=== PATIENT | male | born 1975 | race Caucasian/White ===

== ENCOUNTER 2018-05-05 18:16 | Observation (INO) | payer BC ==
[2018-05-05] MEDS ORDERED: Aspirin 81 MG Tab.Chew PO ONE (18:34)
[2018-05-05] MEDS ORDERED: Sodium Chloride 0.9% 10 ML Syringe FLUSH PRN (18:35)
[2018-05-05] MEDS ORDERED: Metoprolol Tartrate 5 MG/5 ML SDV IVPUSH ONE ×2 (18:36→19:58)
[2018-05-05] MEDS ORDERED: Nitroglycerin/D5W 25 MG/250 ML BOTTLE IV SCH (18:45)
--- NOTE | 2018-05-05 19:03 | EDM.PDOC ---
ED HPI GENERAL MEDICAL PROBLEM - General Chief Complaint: Chest Pain Stated Complaint: CHEST PAIN Time Seen by Provider: 05/05/18 18:20 Source of Information: Reports: Patient History Limitations: Reports: No Limitations - History of Present Illness INITIAL COMMENTS - FREE TEXT/NARRATIVE: 43-year-old male presents for evaluation and treatment of chest discomfort. Patient reports he's been expansion chest discomfort for several weeks. He saw family medicine provider Dr. Hensley about 2 weeks ago and was prescribed "something for blood pressure". Does not sound like he has had a stress test in the past. Patient reports chest discomfort started today. At this time he is chest pain- free. He identifies pain to left anterior lateral chest. No radiation to the arm , back or neck. He states that he felt diaphoretic, nauseated and lightheaded. He reports a sense of malaise. Denies any fevers, cough or cold symptoms. No shortness of breath. Patient also reports burning epigastric pain and reports he was supposed to be tested for H.pylori but has not yet done this. Patient denies any history of diabetes, high blood pressure high cholesterol but also reports he does not normally go to the doctor. Denies any cardiac history himself. Does not know of any family history major cardiac event at a young age. Patient states he is not a smoker but he drinks alcohol. Chest Pain Score (Numeric/FACES): 0 - Related Data Allergies Allergy/AdvReac Type Severity Reaction Status Date / Time No Known Allergies Allergy Verified 05/05/18 18:24 Past Medical History Cardiovascular History: Reports: High Cholesterol, Hypertension Gastrointestinal History: Reports: GERD Musculoskeletal History: Reports: Fracture Social & Family History - Tobacco Use Smoking Status *Q: Never Smoker Second Hand Smoke Exposure: No - Caffeine Use Caffeine Use: Reports: None - Alcohol Use Days Per Week of Alcohol Use: 7 Number of Drinks Per Day: 5 Total Drinks Per Week: 35 - Recreational Drug Use Recreational Drug Use: No ED ROS GENERAL - Review of Systems Review Of Systems: See Below Constitutional: Reports: Malaise, Diaphoresis. Denies: Fever, Chills Respiratory: Denies: Shortness of Breath, Cough Cardiovascular: Reports: Chest Pain. Denies: Syncope GI/Abdominal: Reports: Abdominal Pain, Nausea. Denies: Vomiting Musculoskeletal: Denies: Neck Pain, Arm Pain, Back Pain Neurological: Denies: Syncope ED EXAM, GENERAL - Physical Exam Exam: See Below Exam Limited By: No Limitations General Appearance: Alert, WD/WN, No Apparent Distress, Obese Respiratory/Chest: No Respiratory Distress, Lungs Clear, Normal Breath Sounds Cardiovascular: Normal Peripheral Pulses, Regular Rate, Rhythm, No Murmur GI/Abdominal: Normal Bowel Sounds, Soft, Non-Tender Neurological: Alert, Oriented, Normal Cognition Psychiatric: Normal Affect, Normal Mood Skin Exam: Warm, Dry, Normal Color EKG INTERPRETATION EKG Date: 05/05/18 Time: 18:25 Rhythm: NSR Rate (Beats/Min): 101 [place]: Normal P-Wave: Present QRS: Normal ST-T: Normal QT: Normal EKG Interpretation Comments: NSR at 101 bpm. T wave inversion in lead III. No St elevation of depression. Late transition. Reviewed by myself and Dr. Zuñiga. Course - Vital Signs Last Recorded V/S: Last Vital Signs Temp 97.9 F 05/05/18 18:20 Pulse 94 05/05/18 20:07 Resp 20 05/05/18 18:20 BP 150/96 H 05/05/18 20:07 Pulse Ox 97 05/05/18 18:20 - Orders/Labs/Meds Orders: Active Orders 24 hr Category Date Time Status Patient Status [ADT] Routine ADT 05/05/18 22:15 Ordered Cardiac Monitoring [RC] . DIRECTED Care 05/05/18 18:34 Active EKG 12 Lead [EKG Documentation Completion] [RC] STAT Care 05/05/18 18:43 Active Peripheral IV Care [RC] . DIRECTED Care 05/05/18 18:35 Active Chest 1V Frontal [CR] Stat Exams 05/05/18 18:34 Taken Sodium Chloride 0.9% [Saline Flush] Med 05/05/18 18:35 Active 10 ml FLUSH ASDIRECTED PRN Peripheral IV Insertion Adult [OM.PC] Routine Oth 05/05/18 18:35 Ordered Medication Orders Sodium Chloride (Saline Flush) 10 ml FLUSH ASDIRECTED PRN PRN Reason: Keep Vein Open Last Admin: 05/05/18 18:51 Dose: 10 ml Labs: Laboratory Tests 05/05/18 05/05/18 05/05/18 Range/Units 18:30 18:30 18:30 WBC 6.90 (4.23-9.07) K/mm3 RBC 5.22 (4.63-6.08) M/mm3 Hgb 15.9 (13.7-17.5) gm/L Hct 46.9 (40.1-51.0) % MCV 89.8 (79.0-92.2) fl MCH 30.5 (25.7-32.2) pg MCHC 33.9 (32.2-35.5) g/dl RDW Std Deviation 39.6 (35.1-43.9) fL Plt Count 233 (163-337) K/mm3 MPV 9.7 (9.4-12.3) fl Neut % (Auto) 64.4 (34.0-67.9) % Lymph % (Auto) 25.5 (21.8-53.1) % [place] % (Auto) 8.8 (5.3-12.2) % Eos % (Auto) 0.9 (0.8-7.0) Baso % (Auto) 0.3 (0.1-1.2) % Neut # (Auto) 4.44 (1.78-5.38) K/mm3 Lymph # (Auto) 1.76 (1.32-3.57) K/mm3 [place] # (Auto) 0.61 (0.30-0.82) K/mm3 Eos # (Auto) 0.06 (0.04-0.54) K/mm3 Baso # (Auto) 0.02 (0.01-0.08) K/mm3 PT 10.8 (9.5-12.1) SECONDS INR 0.99 APTT 31 (24-31) SECONDS Sodium 141 (136-145) mEq/L Potassium 3.7 (3.5-5.1) mEq/L Chloride 102 (98-107) mEq/L Carbon Dioxide 26 (21-32) mEq/L Anion Gap 16.7 H (5-15) BUN 17 (7-18) mg/dL Creatinine 1.1 (0.7-1.3) mg/dL Est Cr Clr Drug Dosing 97.86 mL/min Estimated GFR (MDRD) > 60 (>60) mL/min BUN/Creatinine Ratio 15.5 (14-18) Glucose 109 H (74-106) mg/dL Calcium 9.7 (8.5-10.1) mg/dL Total Bilirubin 0.4 (0.2-1.0) mg/dL AST 44 H (15-37) U/L ALT 103 H (16-63) U/L Alkaline Phosphatase 79 (46-116) U/L CK-MB (CK-2) 3.2 (0-3.6) ng/ml Troponin I < 0.017 (0.00-0.056) ng/mL Total Protein 8.8 H (6.4-8.2) g/dl Albumin 4.5 (3.4-5.0) g/dl Globulin 4.3 gm/dL Albumin/Globulin Ratio 1.1 (1-2) Lipase 189 (73-393) U/L 05/05/18 Range/Units 21:15 WBC (4.23-9.07) K/mm3 RBC (4.63-6.08) M/mm3 Hgb (13.7-17.5) gm/L Hct (40.1-51.0) % MCV (79.0-92.2) fl MCH (25.7-32.2) pg MCHC (32.2-35.5) g/dl RDW Std Deviation (35.1-43.9) fL Plt Count (163-337) K/mm3 MPV (9.4-12.3) fl Neut % (Auto) (34.0-67.9) % Lymph % (Auto) (21.8-53.1) % [place] % (Auto) (5.3-12.2) % Eos % (Auto) (0.8-7.0) Baso % (Auto) (0.1-1.2) % Neut # (Auto) (1.78-5.38) K/mm3 Lymph # (Auto) (1.32-3.57) K/mm3 [place] # (Auto) (0.30-0.82) K/mm3 Eos # (Auto) (0.04-0.54) K/mm3 Baso # (Auto) (0.01-0.08) K/mm3 PT (9.5-12.1) SECONDS INR APTT (24-31) SECONDS Sodium (136-145) mEq/L Potassium (3.5-5.1) mEq/L Chloride (98-107) mEq/L Carbon Dioxide (21-32) mEq/L Anion Gap (5-15) BUN (7-18) mg/dL Creatinine (0.7-1.3) mg/dL Est Cr Clr Drug Dosing mL/min Estimated GFR (MDRD) (>60) mL/min BUN/Creatinine Ratio (14-18) Glucose (74-106) mg/dL Calcium (8.5-10.1) mg/dL Total Bilirubin (0.2-1.0) mg/dL AST (15-37) U/L ALT (16-63) U/L Alkaline Phosphatase (46-116) U/L CK-MB (CK-2) (0-3.6) ng/ml Troponin I < 0.017 (0.00-0.056) ng/mL Total Protein (6.4-8.2) g/dl Albumin (3.4-5.0) g/dl Globulin gm/dL Albumin/Globulin Ratio (1-2) Lipase (73-393) U/L Meds: Medications Generic Name Dose Route Start Last Admin Trade Name Fregamaliel PRN Reason Stop Dose Admin Sodium Chloride 10 ml 05/05/18 18:35 05/05/18 18:51 Saline Flush FLUSH 10 ml ASDIRECTED PRN Administration Keep Vein Open Discontinued Medications Generic Name Dose Route Start Last Admin Trade Name Serena PRN Reason Stop Dose Admin Aspirin 324 mg 05/05/18 18:34 05/05/18 18:46 Aspirin PO 05/05/18 18:35 324 mg ONETIME ONE Administration Al Hydroxide/Mg Hydroxide 30 0 ml 05/05/18 19:50 05/05/18 19:57 ml/ Lidocaine HCl 15 ml PO 05/05/18 19:51 45 ml ONETIME ONE Administration Famotidine 20 mg 05/05/18 22:03 05/05/18 22:09 Pepcid IVPUSH 05/05/18 22:04 20 mg ONETIME ONE Administration Nitroglycerin/Dextrose 25 mg in 250 mls @ 3 mls/hr 05/05/18 18:45 05/05/18 18 :52 Nitroglycerin 25 Mg/D5w 250 Ml IV 5 mcg/min TITRATE GINNA 3 mls/hr Administration Protocol 5 MCG/MIN Metoprolol Tartrate 5 mg 05/05/18 18:36 05/05/18 18:48 Lopressor IVPUSH 05/05/18 18:37 5 mg ONETIME ONE Administration Metoprolol Tartrate 5 mg 05/05/18 19:58 05/05/18 20:07 Lopressor IVPUSH 05/05/18 19:59 5 mg ONETIME ONE Administration - Re-Assessments/Exams Free Text/Narrative Re-Assessment/Exam: 05/05/18 20:01 Checked on the patient. Feels improved but still states he does not feel "quite right". Plan will be to try a GI cocktail and give an additional 5mg IV lopressor. B/p has come down, systolic is 150s-160s. Will repeat trop at 3 hours. Discussed disposition, if top is negative HEART score is 4 pts indicating a moderate risk of MACE. Discussed observation admission for a chest pain rule out. 05/05/18 22:28 Repeat troponin is negative at less than 0.017. Discussed with the patient is disposition. I eel it is appropriate for him to come in for a Chest Pain Rule Out. Declined Pain Medication through the ED. Report Change with the GI Cocktail. Blood pressure has come down into the 150s systolic consistently. Denies chest pain only complains of discomfort and malaise. Case discussed with Dr. Edward, hospitalist on-call. He agrees to the admission for chest pain rule out. Plan to stress in the morning. Departure - Departure Time of Disposition: 22:31 Disposition: Refer to Observation Reason for Transfer *Q: Other Condition: Fair Clinical Impression: Chest pain Referrals: Kalpesh Hensley Jr, MD [Primary Care Provider] - Forms: ED Department Discharge Additional Instructions: Patient to be admitted for observation for a chest pain rule out under Dr. Edward. - My Orders Last 24 Hours: My Active Orders 05/05/18 18:34 Cardiac Monitoring [RC] . DIRECTED Chest 1V Frontal [CR] Stat 05/05/18 18:35 Peripheral IV Care [RC] . DIRECTED Sodium Chloride 0.9% [Saline Flush] 10 ml FLUSH ASDIRECTED PRN Peripheral IV Insertion Adult [OM.PC] Routine 05/05/18 18:43 EKG 12 Lead [EKG Documentation Completion] [RC] STAT 05/05/18 22:15 Patient Status [ADT] Routine - Assessment/Plan Last 24 Hours: My Active Orders 05/05/18 18:34 Cardiac Monitoring [RC] . DIRECTED Chest 1V Frontal [CR] Stat 05/05/18 18:35 Peripheral IV Care [RC] . DIRECTED Sodium Chloride 0.9% [Saline Flush] 10 ml FLUSH ASDIRECTED PRN Peripheral IV Insertion Adult [OM.PC] Routine 05/05/18 18:43 EKG 12 Lead [EKG Documentation Completion] [RC] STAT 05/05/18 22:15 Patient Status [ADT] Routine
[2018-05-05] MEDS ORDERED: Alum Hydrox/Mag Hydrox/Simeth 30 ML, Lidocaine 2% 15 ML PO ONE ×2 (19:50)
[2018-05-05] MEDS ORDERED: Famotidine 20 MG/2 ML SDV IVPUSH ONE (22:03)
[2018-05-05] MEDS ORDERED: hydrALAZINE 20 MG/ML SDV IVPUSH PRN (23:10)
[2018-05-05] MEDS ORDERED: Ondansetron 4 MG/2 ML SDV IVPUSH PRN (23:11)
[2018-05-05] MEDS ORDERED: HYDROmorphone 1 MG/ML Syringe IVPUSH PRN (23:12)
[2018-05-05] MEDS ORDERED: Nitroglycerin 0.4 MG Tab.SL SL PRN (23:13)
[2018-05-05] MEDS ORDERED: LORazepam 2 MG/ML SDV IVPUSH PRN (23:14)
--- NOTE | 2018-05-06 06:31 | PCM.HP ---
H&P History of Present Illness - General Date of Service: 05/06/18 Admit Problem/Dx: Admission Diagnosis/Problem Admission Diagnosis/Problem Chest pain Source of Information: Patient, Old Records, Provider, RN, RN Notes Reviewed History Limitations: Reports: No Limitations - History of Present Illness Initial Comments - Free Text/Narative: Roland Johnston is a 43 yo male who presented to our ED yesterday evening with chest pain. He reports symptoms have been coming and going for the past several weeks and he did see Dr. Hensley 2 weeks ago where he was prescribed something for blood pressure. ED provider notes does not always had a stress test in the past. He was having pain prior to presenting to the ED and in the ED he is chest pain-free. Reports the pain is in his left anterior lateral chest with no radiation. States he feels diaphoretic, nausea, and lightheadedness. He has a sense of malaise. Denies any fever, cough, cold symptoms, shortness of breath. He reports his been having epigastric pain and has been instructed to be tested for H. pylori but has not yet done this. Denies any history of diabetes, hypertension, hyperlipidemia and also reports he does not normally go to see a doctor. Denies any personal cardiac history but does have family history of major cardiac events at young ages. He is not a smoker but he does drink alcohol. Reports 5 drinks per day every day of the week. In the ED twelve-lead EKG is obtained showing sinus tachycardia to 101 bpm with T-wave inversion in lead 3. No ST elevation or depression. There is late transition noted. Temp is 97 9. Pulse 94. Respirations 20. Blood pressure 150/96. Pulse ox 97%. Labs are obtained: CBC is 6.90. Hemoglobin 15.9. Hematocrit 46.9. He is normocytic. Blood sugar 233,000. Neutrophils are normal at 64.4%. PT is 10.8. INR 0.99. APTT is 31. Sodium is 141. Potassium 3.7. Chloride 102. Carbon dioxide 26. Anion gap is high at 16.7. BUN is 17. Creatinine 1.1. EGFR is greater than 60. Glucose is 109. Bilirubin 0.4. AST is elevated at 44, ALT elevated at 103, alkaline phosphatase normal at 79. CK-MB is normal at 3.2. Troponin normal less than 0.017. Protein is high at 8.8. Albumin normal at 4.5. Lipase good at 189. Repeat troponin is obtained and is negative at less than 0.017. His given 325 mg aspirin along with a GI cocktail and 20 mg Pepcid IV push. He was started on nitroglycerin drip and given 25 mg metoprolol IV pushes. High scores obtained and is for showing a moderate risk of MACE. He carries a history of HLD, HTN, GERD. He was never a smoker. He does use alcohol daily. He is a full code. His PCP is Dr. Hensley. He is admitted to the medical floor observation status with telemetry for chest pain rule out. Chest Pain Score (Numeric/FACES): 0 - Related Data Allergies/Adverse Reactions: Allergies Allergy/AdvReac Type Severity Reaction Status Date / Time No Known Allergies Allergy Verified 05/05/18 18:24 Home Medications: Home Meds amLODIPine [Norvasc] 5 mg PO DAILY 05/06/18 [History] Past Medical History Cardiovascular History: Reports: High Cholesterol, Hypertension, Other (See Below) Other Cardiovascular History: possible heart murmur at the age of 4; was told it resolved but unsure. Gastrointestinal History: Reports: GERD Musculoskeletal History: Reports: Fracture Social & Family History - Family History Family Medical History: Noncontributory - Tobacco Use Smoking Status *Q: Never Smoker Second Hand Smoke Exposure: No - Caffeine Use Caffeine Use: Reports: None - Alcohol Use Days Per Week of Alcohol Use: 6 Number of Drinks Per Day: 4 Total Drinks Per Week: 24 Date of Last Drink: 05/04/18 - Recreational Drug Use Recreational Drug Use: No H&P Review of Systems - Review of Systems: Review Of Systems: See Below General: Reports: No Symptoms. Denies: Fever, Chills, Malaise, Weakness, Fatigue HEENT: Reports: No Symptoms. Denies: Headaches, Sore Throat Pulmonary: Reports: No Symptoms. Denies: Shortness of Breath, Wheezing, Pleuritic Chest Pain, Cough, Sputum, Hemoptysis Cardiovascular: Reports: No Symptoms. Denies: Chest Pain, Palpitations, Dyspnea on Exertion, Edema, Lightheadedness, Blood Pressure Problem Gastrointestinal: Reports: No Symptoms. Denies: Abdominal Pain, Constipation, Diarrhea, Flatus, Nausea, Vomiting Genitourinary: Reports: No Symptoms. Denies: Pain Musculoskeletal: Reports: No Symptoms Skin: Reports: No Symptoms Psychiatric: Reports: No Symptoms. Denies: Confusion, Depression, Anxiety Neurological: Reports: No Symptoms. Denies: Dizziness, Headache, Pre-Existing Deficit, Seizure, Syncope, Trouble Speaking, Difficulty Walking, Weakness, Gait Disturbance Hematologic/Lymphatic: Reports: No Symptoms Immunologic: Reports: No Symptoms Exam - Exam Exam: See Below - Vital Signs Vital Signs: Last Vital Signs Temp 99.1 F 05/06/18 04:22 Pulse 65 05/06/18 04:22 Resp 16 05/06/18 04:22 BP 150/79 H 05/06/18 04:22 Pulse Ox 98 05/06/18 04:22 Weight: 266 lb 6 oz - Exam Quality Assessment: DVT Prophylaxis General: Alert, Oriented, Cooperative. No: Mild Distress HEENT: Conjunctiva Clear, EACs Clear, EOMI, Hearing Intact, Mucosa Moist & [place] , Nares Patent, Posterior Pharynx Clear, PERRLA Neck: Supple, Trachea Midline Lungs: Clear to Auscultation, Normal Respiratory Effort Cardiovascular: Regular Rate, Regular Rhythm GI/Abdominal Exam: Normal Bowel Sounds, Soft, Non-Tender, No Distention, No Abnormal Bruit (Male) Exam: Deferred Rectal (Males) Exam: Deferred Back Exam: Normal Inspection, Full Range of Motion Extremities: Normal Inspection, Normal Range of Motion, Non-Tender, No Pedal Edema, Normal Capillary Refill Peripheral Pulses: 2+: Radial (L), Radial (R), Dorsalis Pedis (L), Dorsalis Pedis (R) Skin: Warm, Dry, Intact Neurological: Cranial Nerves Intact Neuro Extensive - Mental Status: Alert, Oriented x3, Normal Mood/Affect, Normal Cognition, Memory Intact Psychiatric: Alert, Normal Affect, Normal Mood - Patient Data Lab Results Last 24 hrs: Laboratory Results - last 24 hr 05/05/18 05/05/18 05/05/18 Range/Units 18:30 18:30 18:30 WBC 6.90 (4.23-9.07) K/mm3 RBC 5.22 (4.63-6.08) M/mm3 Hgb 15.9 (13.7-17.5) gm/L Hct 46.9 (40.1-51.0) % MCV 89.8 (79.0-92.2) fl MCH 30.5 (25.7-32.2) pg MCHC 33.9 (32.2-35.5) g/dl RDW Std Deviation 39.6 (35.1-43.9) fL Plt Count 233 (163-337) K/mm3 MPV 9.7 (9.4-12.3) fl Neut % (Auto) 64.4 (34.0-67.9) % Lymph % (Auto) 25.5 (21.8-53.1) % [place] % (Auto) 8.8 (5.3-12.2) % Eos % (Auto) 0.9 (0.8-7.0) Baso % (Auto) 0.3 (0.1-1.2) % Neut # (Auto) 4.44 (1.78-5.38) K/mm3 Lymph # (Auto) 1.76 (1.32-3.57) K/mm3 [place] # (Auto) 0.61 (0.30-0.82) K/mm3 Eos # (Auto) 0.06 (0.04-0.54) K/mm3 Baso # (Auto) 0.02 (0.01-0.08) K/mm3 PT 10.8 (9.5-12.1) SECONDS INR 0.99 APTT 31 (24-31) SECONDS Sodium 141 (136-145) mEq/L Potassium 3.7 (3.5-5.1) mEq/L Chloride 102 (98-107) mEq/L Carbon Dioxide 26 (21-32) mEq/L Anion Gap 16.7 H (5-15) BUN 17 (7-18) mg/dL Creatinine 1.1 (0.7-1.3) mg/dL Est Cr Clr Drug Dosing 97.86 mL/min Estimated GFR (MDRD) > 60 (>60) mL/min BUN/Creatinine Ratio 15.5 (14-18) Glucose 109 H (74-106) mg/dL Calcium 9.7 (8.5-10.1) mg/dL Total Bilirubin 0.4 (0.2-1.0) mg/dL AST 44 H (15-37) U/L ALT 103 H (16-63) U/L Alkaline Phosphatase 79 (46-116) U/L CK-MB (CK-2) 3.2 (0-3.6) ng/ml Troponin I < 0.017 (0.00-0.056) ng/mL Total Protein 8.8 H (6.4-8.2) g/dl Albumin 4.5 (3.4-5.0) g/dl Globulin 4.3 gm/dL Albumin/Globulin Ratio 1.1 (1-2) Lipase 189 (73-393) U/L 05/05/18 05/06/18 05/06/18 Range/Units 21:15 05:11 05:11 WBC 5.57 (4.23-9.07) K/mm3 RBC 5.01 (4.63-6.08) M/mm3 Hgb 15.3 (13.7-17.5) gm/L Hct 45.1 (40.1-51.0) % MCV 90.0 (79.0-92.2) fl MCH 30.5 (25.7-32.2) pg MCHC 33.9 (32.2-35.5) g/dl RDW Std Deviation 39.6 (35.1-43.9) fL Plt Count 209 (163-337) K/mm3 MPV 9.9 (9.4-12.3) fl Neut % (Auto) 59.4 (34.0-67.9) % Lymph % (Auto) 26.4 (21.8-53.1) % [place] % (Auto) 12.7 H (5.3-12.2) % Eos % (Auto) 1.1 (0.8-7.0) Baso % (Auto) 0.4 (0.1-1.2) % Neut # (Auto) 3.31 (1.78-5.38) K/mm3 Lymph # (Auto) 1.47 (1.32-3.57) K/mm3 [place] # (Auto) 0.71 (0.30-0.82) K/mm3 Eos # (Auto) 0.06 (0.04-0.54) K/mm3 Baso # (Auto) 0.02 (0.01-0.08) K/mm3 PT (9.5-12.1) SECONDS INR APTT (24-31) SECONDS Sodium (136-145) mEq/L Potassium (3.5-5.1) mEq/L Chloride (98-107) mEq/L Carbon Dioxide (21-32) mEq/L Anion Gap (5-15) BUN (7-18) mg/dL Creatinine (0.7-1.3) mg/dL Est Cr Clr Drug Dosing mL/min Estimated GFR (MDRD) (>60) mL/min BUN/Creatinine Ratio (14-18) Glucose (74-106) mg/dL Calcium (8.5-10.1) mg/dL Total Bilirubin (0.2-1.0) mg/dL AST (15-37) U/L ALT (16-63) U/L Alkaline Phosphatase (46-116) U/L CK-MB (CK-2) (0-3.6) ng/ml Troponin I < 0.017 < 0.017 (0.00-0.056) ng/mL Total Protein (6.4-8.2) g/dl Albumin (3.4-5.0) g/dl Globulin gm/dL Albumin/Globulin Ratio (1-2) Lipase (73-393) U/L 05/06/18 Range/Units 05:11 WBC (4.23-9.07) K/mm3 RBC (4.63-6.08) M/mm3 Hgb (13.7-17.5) gm/L Hct (40.1-51.0) % MCV (79.0-92.2) fl MCH (25.7-32.2) pg MCHC (32.2-35.5) g/dl RDW Std Deviation (35.1-43.9) fL Plt Count (163-337) K/mm3 MPV (9.4-12.3) fl Neut % (Auto) (34.0-67.9) % Lymph % (Auto) (21.8-53.1) % [place] % (Auto) (5.3-12.2) % Eos % (Auto) (0.8-7.0) Baso % (Auto) (0.1-1.2) % Neut # (Auto) (1.78-5.38) K/mm3 Lymph # (Auto) (1.32-3.57) K/mm3 [place] # (Auto) (0.30-0.82) K/mm3 Eos # (Auto) (0.04-0.54) K/mm3 Baso # (Auto) (0.01-0.08) K/mm3 PT (9.5-12.1) SECONDS INR APTT (24-31) SECONDS Sodium 140 (136-145) mEq/L Potassium 3.9 (3.5-5.1) mEq/L Chloride 104 (98-107) mEq/L Carbon Dioxide 26 (21-32) mEq/L Anion Gap 13.9 (5-15) BUN 17 (7-18) mg/dL Creatinine 1.1 (0.7-1.3) mg/dL Est Cr Clr Drug Dosing 97.86 mL/min Estimated GFR (MDRD) > 60 (>60) mL/min BUN/Creatinine Ratio 15.5 (14-18) Glucose 104 (74-106) mg/dL Calcium 9.4 (8.5-10.1) mg/dL Total Bilirubin 0.7 (0.2-1.0) mg/dL AST 33 (15-37) U/L ALT 86 H (16-63) U/L Alkaline Phosphatase 71 (46-116) U/L CK-MB (CK-2) (0-3.6) ng/ml Troponin I (0.00-0.056) ng/mL Total Protein 7.8 (6.4-8.2) g/dl Albumin 3.9 (3.4-5.0) g/dl Globulin 3.9 gm/dL Albumin/Globulin Ratio 1.0 (1-2) Lipase (73-393) U/L Result Diagrams: 05/06/18 05:11 05/06/18 05:11 - Problem List (1) Chest pain SNOMED Code(s): 39886206 ICD Code: R07.9 - CHEST PAIN, UNSPECIFIED Status: Acute Priority: High Current Visit: Yes Qualifiers: Chest pain type: unspecified Qualified Code(s): R07.9 - Chest pain, unspecified (2) Hypertension SNOMED Code(s): 29894752 ICD Code: I10 - ESSENTIAL (PRIMARY) HYPERTENSION Status: Acute Priority: High Current Visit: Yes Qualifiers: Hypertension type: unspecified Qualified Code(s): I10 - Essential (primary ) hypertension (3) Hyperlipidemia SNOMED Code(s): 20153673 ICD Code: E78.5 - HYPERLIPIDEMIA, UNSPECIFIED Status: Acute Current Visit : Yes Problem List Initiated/Reviewed/Updated: Yes Orders Last 24hrs: Active Orders 24 hr Category Date Time Status Patient Status [ADT] Routine ADT 05/05/18 22:15 Active Cardiac Monitoring [RC] . DIRECTED Care 05/05/18 18:34 Active EKG 12 Lead [EKG Documentation Completion] [RC] STAT Care 05/05/18 18:43 Active Up ad Tali [RC] ASDIRECTED Care 05/05/18 23:07 Active NPO Now [Nothing per Oral Now Diet] [DIET] Diet 05/06/18 Breakfast Active Cardiolite Stress Test [Myocardial Perf Spect Multi] [ Exams 05/06/18 08:00 Ordered NM] Routine Chest 1V Frontal [CR] Stat Exams 05/05/18 18:34 Taken HYDROmorphone [Dilaudid] Med 05/05/18 23:12 Active 0.5 mg IVPUSH Q2H PRN LORazepam [Ativan] Med 05/05/18 23:14 Active 1 mg IVPUSH Q6H PRN Nitroglycerin [Nitrostat] Med 05/05/18 23:13 Active 0.4 mg SL Q5M PRN Ondansetron [Zofran] Med 05/05/18 23:11 Active 4 mg IVPUSH Q6H PRN Sodium Chloride 0.9% [Saline Flush] Med 05/05/18 18:35 Active 10 ml FLUSH ASDIRECTED PRN hydrALAZINE [Apresoline] Med 05/05/18 23:10 Active 10 mg IVPUSH Q4H PRN Peripheral IV Insertion Adult [OM.PC] Routine Oth 05/05/18 18:35 Ordered Code Status [Resuscitation Status] Routine Resus Stat 05/05/18 22:45 Ordered Medication Orders Hydralazine HCl (Apresoline) 10 mg IVPUSH Q4H PRN PRN Reason: Hypertension Hydromorphone HCl (Dilaudid) 0.5 mg IVPUSH Q2H PRN PRN Reason: Pain Lorazepam (Ativan) 1 mg IVPUSH Q6H PRN PRN Reason: Anxiety Nitroglycerin (Nitrostat) 0.4 mg SL Q5M PRN PRN Reason: Chest Pain Ondansetron HCl (Zofran) 4 mg IVPUSH Q6H PRN PRN Reason: Nausea Sodium Chloride (Saline Flush) 10 ml FLUSH ASDIRECTED PRN PRN Reason: Keep Vein Open Last Admin: 05/05/18 18:51 Dose: 10 ml Assessment/Plan Comment:: I/P: Acute: Chest pain rule-out -Reports occasional chest pain that comes and goes daily and varies in duration. -Hx/o GERD - given GI cocktail and H2 bhavesh in ED with improvement -HEART score = 4, moderate risk of MACE -Cardiolyte stress test in AM -NPO until after completion of stress test - Follow-stress test protocol for food/drink -PRN nitroglycerin as needed -Lipid panel as below -Troponins negative x3 -CKMB WNL in ED HTN -Reports he has been 150s systolic for as long as he can remember -Was reportedly started on amlodipine by PCP but has not noticed much of a change -BP elevated in ED but now 140-150s systolic -Discussed with Dr. Edward - defer to PCP for further treatment HLD -Lipid panel obtained 05/06/18: Triglycerides 151, Total cholesterol 294, LDL 218, HDL 37 -Dietary consult for lifestyle changes -Start atorvastatin 40mg BP Daily at discharge Daily ETOH use -Paediatric Physiotherapist on stopping or decreasing intake -No need for supplements/Psychiatry/LAC at this time Chronic: HLD HTN GERD Plan: Admit to medical floor observation status with telemetry Routine AM Labs Other orders as indicated above He is ambulatory so will hold off PT/OT DVT/PE prophylaxis: Ambulation and SCDs if he does not discharge today. Code status: Full code; PCP: Dr. Hensley
--- NOTE | 2018-05-06 09:21 | PCM.PRNOTE ---
- Free Text/Narrative Note: Date of service: 05/06/18 Procedure: Exercise treadmill stress test Ordering provider: Dr. Almaz Edward Indication: Chest pain Baseline EKG: Sinus Rhythm at 78 bpm with Q-waves noted in inferior leads. Poor R-wave progression. Non-specific T-wave abnormalities. The patient exercised on a standard John protocol for 10 minutes and 30 seconds achieving a maximal heart rate of 174 bpm (98% of the maximal predicted heart rate.) 12.8 METs. Blood pressure at peak stress was 170/[place] [id number]. Test terminated due to: Fatigue EKG changes of ischemia during stress or in recovery: None Symptoms: None Arrhythmias: Very rare unifocal PVC Of note: Patient did receive 5mg IV push metoprolol tartrate in ED at 1836 and 1958. This was discussed with Dr. Edward and the decision was made to continue with planned Cardiolite stress test. Impression: 1. Negative exercise treadmill ECG for ischemia. 2. Normal blood pressure response to stress. 3. Excellent exercise tolerance. 4. Nuclear images pending and will be reported separately per Radiologist.
--- NOTE | 2018-05-06 09:28 | PCM.DCSUM1 ---
Discharge Summary - Hospital Course HPI Initial Comments: Roland Johnston is a 43 yo male who presented to our ED yesterday evening with chest pain. He reports symptoms have been coming and going for the past several weeks and he did see Dr. Hensley 2 weeks ago where he was prescribed something for blood pressure. ED provider notes does not always had a stress test in the past. He was having pain prior to presenting to the ED and in the ED he is chest pain-free. Reports the pain is in his left anterior lateral chest with no radiation. States he feels diaphoretic, nausea, and lightheadedness. He has a sense of malaise. Denies any fever, cough, cold symptoms, shortness of breath. He reports his been having epigastric pain and has been instructed to be tested for H. pylori but has not yet done this. Denies any history of diabetes, hypertension, hyperlipidemia and also reports he does not normally go to see a doctor. Denies any personal cardiac history but does have family history of major cardiac events at young ages. He is not a smoker but he does drink alcohol. Reports 5 drinks per day every day of the week. In the ED twelve-lead EKG is obtained showing sinus tachycardia to 101 bpm with T-wave inversion in lead 3. No ST elevation or depression. There is late transition noted. Temp is 97 9. Pulse 94. Respirations 20. Blood pressure 150/96. Pulse ox 97%. Labs are obtained: CBC is 6.90. Hemoglobin 15.9. Hematocrit 46.9. He is normocytic. Blood sugar 233,000. Neutrophils are normal at 64.4%. PT is 10.8. INR 0.99. APTT is 31. Sodium is 141. Potassium 3.7. Chloride 102. Carbon dioxide 26. Anion gap is high at 16.7. BUN is 17. Creatinine 1.1. EGFR is greater than 60. Glucose is 109. Bilirubin 0.4. AST is elevated at 44, ALT elevated at 103, alkaline phosphatase normal at 79. CK-MB is normal at 3.2. Troponin normal less than 0.017. Protein is high at 8.8. Albumin normal at 4.5. Lipase good at 189. Repeat troponin is obtained and is negative at less than 0.017. His given 325 mg aspirin along with a GI cocktail and 20 mg Pepcid IV push. He was started on nitroglycerin drip and given 25 mg metoprolol IV pushes. High scores obtained and is for showing a moderate risk of MACE. He carries a history of HLD, HTN, GERD. He was never a smoker. He does use alcohol daily. He is a full code. His PCP is Dr. Hensley. He is admitted to the medical floor observation status with telemetry for chest pain rule out. Diagnosis: Stroke: No - Discharge Data Discharge Date: 05/06/18 (Admit date: 05/05/18) Discharge Disposition: Home, Self-Care 01 Condition: Good - Discharge Diagnosis/Problem(s) (1) Chest pain SNOMED Code(s): 60646534 ICD Code: R07.9 - CHEST PAIN, UNSPECIFIED Status: Acute Priority: High Current Visit: Yes Qualifiers: Chest pain type: unspecified Qualified Code(s): R07.9 - Chest pain, unspecified (2) Hypertension SNOMED Code(s): 06380457 ICD Code: I10 - ESSENTIAL (PRIMARY) HYPERTENSION Status: Acute Priority: High Current Visit: Yes Qualifiers: Hypertension type: unspecified Qualified Code(s): I10 - Essential (primary ) hypertension (3) Hyperlipidemia SNOMED Code(s): 27654580 ICD Code: E78.5 - HYPERLIPIDEMIA, UNSPECIFIED Status: Acute Current Visit : Yes - Patient Summary/Data Consults: Consultations 05/06/18 08:39 Consult to Dietary [Consult to Pediatric Radiologist] [CONS] Routine Labs Pending at D/C: None Recommended Follow-up Testing/Procedures: Follow-up with PCP within 7-10 days -Complete H. Pylori test which patient has Hospital Course: I/P: Acute: Chest pain rule-out -Reports occasional chest pain that comes and goes daily and varies in duration. -Hx/o GERD - given GI cocktail and H2 bhavesh in ED with improvement -HEART score = 4, moderate risk of MACE -Cardiolyte stress test in AM - negative -NPO until after completion of stress test - Follow-stress test protocol for food/drink -PRN nitroglycerin as needed -Lipid panel as below -Troponins negative x3 -12-lead EKG in ED shows no signs of ischemia -Negative CXR in ED -CKMB WNL in ED HTN -Reports he has been 150s systolic for as long as he can remember -Was reportedly started on amlodipine by PCP but has not noticed much of a change -BP elevated in ED but now 140-150s systolic -Discussed with Dr. 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 Code status: Full code; PCP: Dr. Hensley Overall Daniel did very well. He was brought in for chest pain rule-out. He continued to be pain free throughout the night and today. His BP has remained upper 140's to low 150's systolic while here. He reports he has been taking his BP daily and it has always been 150's systolic. He should continue taking his BP daily and continue his home medication. His PCP, Dr. Hensley can address this further in follow-up. His lipid panel was obtained and was found to be very irregular as above. He was started on atorvastatin 40mg daily at discharge. Recommend re-check lipid panel in 3 months with PCP. He did see our cement loader to address possible lifestyle modifications. Stress test was negative. Troponins remained negative. Daniel reported he has a H. Pylori test at home and has been putting of doing this. He was advised to complete this as symptoms are likely due to his GERD. Suggest considering PPI in future once H. Pylori test is obtained. We did address his chronic daily ETOH use. He was advised to decrease or stop his drinking as this would have an overall health benefit for him. He should follow-up with his PCP within 7-10 days of discharge, sooner if needed. - Patient Instructions Diet: Heart Healthy Diet Activity: As Tolerated Notify Provider of: Fever, Increased Pain, Nausea and/or Vomiting - Discharge Plan *PRESCRIPTION DRUG MONITORING PROGRAM REVIEWED*: No *COPY OF PRESCRIPTION DRUG MONITORING REPORT IN PATIENT DINAH: No Prescriptions/Med Rec: atorvaSTATin [Lipitor] 40 mg PO BEDTIME #20 tab Home Medications: Home Meds amLODIPine [Norvasc] 5 mg PO DAILY 05/06/18 [History] atorvaSTATin [Lipitor] 40 mg PO BEDTIME #20 tab 05/06/18 [Rx] Oxygen Therapy Mode: Room Air Forms: ED Department Discharge Referrals: Kalpesh Hensley Jr, MD [Primary Care Provider] - - Discharge Summary/Plan Comment DC Time >30 min.: No - General Info Date of Service: 05/06/18 Admission Dx/Problem (Free Text: Admission Diagnosis/Problem Admission Diagnosis/Problem Chest pain Functional Status: Reports: Pain Controlled, Tolerating Diet, Ambulating, Urinating. Denies: New Symptoms - Review of Systems General: Reports: No Symptoms. Denies: Fever, Weakness, Fatigue, Malaise, Chills HEENT: Reports: No Symptoms. Denies: Dysphasia, Headaches, Sore Throat, Visual Changes Pulmonary: Reports: No Symptoms. Denies: Shortness of Breath, Pleuritic Chest Pain, Cough, Sputum, Hemoptysis, Wheezing Cardiovascular: Reports: No Symptoms. Denies: Chest Pain, Palpitations, Dyspnea on Exertion, Edema, Lightheadedness Gastrointestinal: Reports: No Symptoms. Denies: Abdominal Pain, Constipation, Decreased Appetite, Diarrhea, Nausea, Vomiting Genitourinary: Reports: No Symptoms. Denies: Dysuria, Pain Musculoskeletal: Reports: No Symptoms Skin: Reports: No Symptoms Neurological: Reports: No Symptoms. Denies: Confusion, Headache, Numbness, Pre- Existing Deficit, Seizure, Syncope, Tingling, Trouble Speaking, Difficulty Walking, Weakness, Gait Disturbance Psychiatric: Reports: No Symptoms - Patient Data Vitals - Most Recent: Last Vital Signs Temp 97.7 F 05/06/18 07:36 Pulse 72 05/06/18 07:36 Resp 20 05/06/18 07:36 BP 149/95 H 05/06/18 07:36 Pulse Ox 96 05/06/18 07:36 Weight - Most Recent: 266 lb 6 oz I&O - Last 24 hours: Intake & Output 05/05/18 05/06/18 05/06/18 22:59 06:59 14:59 Intake Total 0 Balance 0 Lab Results - Last 24 hrs: Laboratory Results - last 24 hr 05/05/18 05/05/18 05/05/18 Range/Units 18:30 18:30 18:30 WBC 6.90 (4.23-9.07) K/mm3 RBC 5.22 (4.63-6.08) M/mm3 Hgb 15.9 (13.7-17.5) gm/L Hct 46.9 (40.1-51.0) % MCV 89.8 (79.0-92.2) fl MCH 30.5 (25.7-32.2) pg MCHC 33.9 (32.2-35.5) g/dl RDW Std Deviation 39.6 (35.1-43.9) fL Plt Count 233 (163-337) K/mm3 MPV 9.7 (9.4-12.3) fl Neut % (Auto) 64.4 (34.0-67.9) % Lymph % (Auto) 25.5 (21.8-53.1) % Finney % (Auto) 8.8 (5.3-12.2) % Eos % (Auto) 0.9 (0.8-7.0) Baso % (Auto) 0.3 (0.1-1.2) % Neut # (Auto) 4.44 (1.78-5.38) K/mm3 Lymph # (Auto) 1.76 (1.32-3.57) K/mm3 Finney # (Auto) 0.61 (0.30-0.82) K/mm3 Eos # (Auto) 0.06 (0.04-0.54) K/mm3 Baso # (Auto) 0.02 (0.01-0.08) K/mm3 PT 10.8 (9.5-12.1) SECONDS INR 0.99 APTT 31 (24-31) SECONDS Sodium 141 (136-145) mEq/L Potassium 3.7 (3.5-5.1) mEq/L Chloride 102 (98-107) mEq/L Carbon Dioxide 26 (21-32) mEq/L Anion Gap 16.7 H (5-15) BUN 17 (7-18) mg/dL Creatinine 1.1 (0.7-1.3) mg/dL Est Cr Clr Drug Dosing 97.86 mL/min Estimated GFR (MDRD) > 60 (>60) mL/min BUN/Creatinine Ratio 15.5 (14-18) Glucose 109 H (74-106) mg/dL Calcium 9.7 (8.5-10.1) mg/dL Total Bilirubin 0.4 (0.2-1.0) mg/dL AST 44 H (15-37) U/L ALT 103 H (16-63) U/L Alkaline Phosphatase 79 (46-116) U/L CK-MB (CK-2) 3.2 (0-3.6) ng/ml Troponin I < 0.017 (0.00-0.056) ng/mL Total Protein 8.8 H (6.4-8.2) g/dl Albumin 4.5 (3.4-5.0) g/dl Globulin 4.3 gm/dL Albumin/Globulin Ratio 1.1 (1-2) Triglycerides (<150) mg/dL Cholesterol (<200) mg/dL LDL Cholesterol Direct (<100) mg/dL HDL Cholesterol (40-59) mg/dL Lipase 189 (73-393) U/L 05/05/18 05/06/18 05/06/18 Range/Units 21:15 05:11 05:11 WBC 5.57 (4.23-9.07) K/mm3 RBC 5.01 (4.63-6.08) M/mm3 Hgb 15.3 (13.7-17.5) gm/L Hct 45.1 (40.1-51.0) % MCV 90.0 (79.0-92.2) fl MCH 30.5 (25.7-32.2) pg MCHC 33.9 (32.2-35.5) g/dl RDW Std Deviation 39.6 (35.1-43.9) fL Plt Count 209 (163-337) K/mm3 MPV 9.9 (9.4-12.3) fl Neut % (Auto) 59.4 (34.0-67.9) % Lymph % (Auto) 26.4 (21.8-53.1) % Finney % (Auto) 12.7 H (5.3-12.2) % Eos % (Auto) 1.1 (0.8-7.0) Baso % (Auto) 0.4 (0.1-1.2) % Neut # (Auto) 3.31 (1.78-5.38) K/mm3 Lymph # (Auto) 1.47 (1.32-3.57) K/mm3 Finney # (Auto) 0.71 (0.30-0.82) K/mm3 Eos # (Auto) 0.06 (0.04-0.54) K/mm3 Baso # (Auto) 0.02 (0.01-0.08) K/mm3 PT (9.5-12.1) SECONDS INR APTT (24-31) SECONDS Sodium (136-145) mEq/L Potassium (3.5-5.1) mEq/L Chloride (98-107) mEq/L Carbon Dioxide (21-32) mEq/L Anion Gap (5-15) BUN (7-18) mg/dL Creatinine (0.7-1.3) mg/dL Est Cr Clr Drug Dosing mL/min Estimated GFR (MDRD) (>60) mL/min BUN/Creatinine Ratio (14-18) Glucose (74-106) mg/dL Calcium (8.5-10.1) mg/dL Total Bilirubin (0.2-1.0) mg/dL AST (15-37) U/L ALT (16-63) U/L Alkaline Phosphatase (46-116) U/L CK-MB (CK-2) (0-3.6) ng/ml Troponin I < 0.017 < 0.017 (0.00-0.056) ng/mL Total Protein (6.4-8.2) g/dl Albumin (3.4-5.0) g/dl Globulin gm/dL Albumin/Globulin Ratio (1-2) Triglycerides (<150) mg/dL Cholesterol (<200) mg/dL LDL Cholesterol Direct (<100) mg/dL HDL Cholesterol (40-59) mg/dL Lipase (73-393) U/L 05/06/18 05/06/18 Range/Units 05:11 05:11 WBC (4.23-9.07) K/mm3 RBC (4.63-6.08) M/mm3 Hgb (13.7-17.5) gm/L Hct (40.1-51.0) % MCV (79.0-92.2) fl MCH (25.7-32.2) pg MCHC (32.2-35.5) g/dl RDW Std Deviation (35.1-43.9) fL Plt Count (163-337) K/mm3 MPV (9.4-12.3) fl Neut % (Auto) (34.0-67.9) % Lymph % (Auto) (21.8-53.1) % Finney % (Auto) (5.3-12.2) % Eos % (Auto) (0.8-7.0) Baso % (Auto) (0.1-1.2) % Neut # (Auto) (1.78-5.38) K/mm3 Lymph # (Auto) (1.32-3.57) K/mm3 Finney # (Auto) (0.30-0.82) K/mm3 Eos # (Auto) (0.04-0.54) K/mm3 Baso # (Auto) (0.01-0.08) K/mm3 PT (9.5-12.1) SECONDS INR APTT (24-31) SECONDS Sodium 140 (136-145) mEq/L Potassium 3.9 (3.5-5.1) mEq/L Chloride 104 (98-107) mEq/L Carbon Dioxide 26 (21-32) mEq/L Anion Gap 13.9 (5-15) BUN 17 (7-18) mg/dL Creatinine 1.1 (0.7-1.3) mg/dL Est Cr Clr Drug Dosing 97.86 mL/min Estimated GFR (MDRD) > 60 (>60) mL/min BUN/Creatinine Ratio 15.5 (14-18) Glucose 104 (74-106) mg/dL Calcium 9.4 (8.5-10.1) mg/dL Total Bilirubin 0.7 (0.2-1.0) mg/dL AST 33 (15-37) U/L ALT 86 H (16-63) U/L Alkaline Phosphatase 71 (46-116) U/L CK-MB (CK-2) (0-3.6) ng/ml Troponin I (0.00-0.056) ng/mL Total Protein 7.8 (6.4-8.2) g/dl Albumin 3.9 (3.4-5.0) g/dl Globulin 3.9 gm/dL Albumin/Globulin Ratio 1.0 (1-2) Triglycerides 151 H (<150) mg/dL Cholesterol 294 H (<200) mg/dL LDL Cholesterol Direct 218 H* (<100) mg/dL HDL Cholesterol 37.0 L (40-59) mg/dL Lipase (73-393) U/L Med Orders - Current: Current Medications Hydralazine HCl (Apresoline) 10 mg IVPUSH Q4H PRN PRN Reason: Hypertension Hydromorphone HCl (Dilaudid) 0.5 mg IVPUSH Q2H PRN PRN Reason: Pain Lorazepam (Ativan) 1 mg IVPUSH Q6H PRN PRN Reason: Anxiety Nitroglycerin (Nitrostat) 0.4 mg SL Q5M PRN PRN Reason: Chest Pain Ondansetron HCl (Zofran) 4 mg IVPUSH Q6H PRN PRN Reason: Nausea Sodium Chloride (Saline Flush) 10 ml FLUSH ASDIRECTED PRN PRN Reason: Keep Vein Open Last Admin: 05/05/18 18:51 Dose: 10 ml Discontinued Medications Aspirin (Aspirin) 324 mg PO ONETIME ONE Stop: 05/05/18 18:35 Last Admin: 05/05/18 18:46 Dose: 324 mg Al Hydroxide/Mg Hydroxide 30 (ml/ Lidocaine HCl 15 ml) 0 ml PO ONETIME ONE Stop: 05/05/18 19:51 Last Admin: 05/05/18 19:57 Dose: 45 ml Famotidine (Pepcid) 20 mg IVPUSH ONETIME ONE Stop: 05/05/18 22:04 Last Admin: 05/05/18 22:09 Dose: 20 mg Nitroglycerin/Dextrose (Nitroglycerin 25 Mg/D5w 250 Ml) 25 mg in 250 mls @ 3 mls/hr IV TITRATE GINNA; Protocol Last Admin: 05/05/18 18:52 Dose: 5 mcg/min, 3 mls/hr Metoprolol Tartrate (Lopressor) 5 mg IVPUSH ONETIME ONE Stop: 05/05/18 18:37 Last Admin: 05/05/18 18:48 Dose: 5 mg Metoprolol Tartrate (Lopressor) 5 mg IVPUSH ONETIME ONE Stop: 05/05/18 19:59 Last Admin: 05/05/18 20:07 Dose: 5 mg - Exam Quality Assessment: Reports: DVT Prophylaxis General: Reports: Alert, Oriented, Cooperative, No Acute Distress HEENT: Reports: Pupils Equal, Pupils Reactive, EOMI, Mucous Membr. Moist/[place] Neck: Reports: Supple, Trachea Midline, No JVD Lungs: Reports: Clear to Auscultation, Normal Respiratory Effort Cardiovascular: Reports: Regular Rate, Regular Rhythm GI/Abdominal Exam: Normal Bowel Sounds, Soft, Non-Tender, No Distention, No Abnormal Bruit, Pelvis Stable (Male) Exam: Deferred Rectal (Males) Exam: Deferred Back Exam: Reports: Normal Inspection, Full Range of Motion Extremities: Normal Inspection, Normal Range of Motion, Non-Tender, No Pedal Edema, Normal Capillary Refill Skin: Reports: Warm, Dry, Intact Neurological: Reports: No New Focal Deficit Psy/Mental Status: Reports: Alert, Normal Affect, Normal Mood
--- NOTE | 2018-05-06 10:10 | CR ---
Chest: Portable view of the chest was obtained. Comparison: No prior chest x-ray. Heart size and mediastinum are normal. Lungs are clear. Bony structures are unremarkable. Impression: 1. Nothing acute is identified on portable chest x-ray. Diagnostic code #1
[2018-05-06] MEDS ORDERED: amLODIPine 5 MG Tab PO SCH (12:30)
--- NOTE | 2018-05-06 12:38 | NM ---
Cardiolite cardiac scan Technique: I have data stating the patient was stressed utilizing treadmill protocol. Patient reached 166 bpm which is above the patient's 85% maximum predicted heart rate of 150 bpm. Stress dose of technetium 99m Cardiolite was 11.9 mCi. Rest dose was 30.7 mCi. SPECT imaging was obtained in 3 planes for both portions of the study. Low-dose chest CT performed to allow for attenuation correction. Comparison: No prior cardiac imaging. Findings: Activity within the left ventricular myocardium is homogeneous between rest and stress study. No fixed or reversible type change is identified. Ejection fraction is normal at 65%. Wall thickening and wall motion are normal. Impression: 1. No abnormality is identified on Cardiolite portion of cardiac stress test. Diagnostic code #1
== END 2018-05-06 15:52 | disposition home or self-care (01) ==
LOC: JD.ED 18:16 → JD.MS 22:28
PROVIDERS: ADMIT Internal Medicine; ATTEND Internal Medicine
DX: R07.9 Chest pain, unspecified (principal); I10 Essential (primary) hypertension; E78.5 Hyperlipidemia, unspecified; K21.9 Gastro-esophageal reflux disease without esophagitis; Z79.899 Other long term (current) drug therapy
CPT/HCPCS: 36415; 71045; 78452; 80053; 80061; 82553; 83690; 83735; 84484; 85025; 85610; 85730; 93005; 93017; 96365; 96366; 96375; 96376; 99285; A9270; A9500; J3490; G0378

== ENCOUNTER 2019-01-11 03:48 | Emergency (ER) | payer BC ==
[2019-01-11] MEDS ORDERED: LORazepam 1 MG Tab PO ONE (04:53)
--- NOTE | 2019-01-11 04:55 | EDM.PDOC ---
ED HPI GENERAL MEDICAL PROBLEM - General Chief Complaint: Cardiovascular Problem Stated Complaint: DIZZY BLOOD PRESSURE HIGH Time Seen by Provider: 01/11/19 04:21 Source of Information: Reports: Patient, Family () History Limitations: Reports: No Limitations - History of Present Illness INITIAL COMMENTS - FREE TEXT/NARRATIVE: Mr. Johnston is a very pleasant 44-year-old man with a past medical history significant for hypertension, dyslipidemia, and anxiety, who states that he woke around 02:30 to 03:00 feeling sweaty, lightheaded, and with a tingling sensation to both of his shoulders. He denies having had any chest pain, dyspnea , or palpitations. He checked his blood pressure, finding it to be 147/90. He states that he walked around, but his symptoms persisted. Since then, the patient states that his chest pain has been coming and going. No prior similar symptoms. The patient denies having any other symptoms, such as recent fever or chills, cough, nausea, vomiting, constipation, diarrhea, abdominal pain, recent weight gain or weight loss, recent bloody bowel movements or black bowel movements, recent joint aches, headaches, or rashes. Here in the ED, the patient appears to be mildly anxious, but is in no acute distress. His initial blood pressure was 162/87, with remainder of his vitals being full. It is noted that his oxygen saturation is 100% on room air. The patient states that his anxiety is being treated with Prozac, however, he has been on it for only 30 days. The patient's PCP is Dr. Mitch Payan. The patient has an appointment to see Dr. Payan on , 01/19/2019. - Related Data Allergies Allergy/AdvReac Type Severity Reaction Status Date / Time No Known Allergies Allergy Verified 05/05/18 18:24 Home Meds: Home Meds amLODIPine [Norvasc] 10 mg PO DAILY 05/06/18 [History] atorvaSTATin [Lipitor] 40 mg PO BEDTIME #20 tab 05/06/18 [Rx] Esomeprazole Magnesium [Nexium] 40 mg PO DAILY 01/11/19 [History] FLUoxetine HCl [Prozac] 20 mg PO DAILY 01/11/19 [History] Sucralfate [Carafate] 1 gm PO TID 01/11/19 [History] Past Medical History Cardiovascular History: Reports: High Cholesterol, Hypertension Gastrointestinal History: Reports: GERD Musculoskeletal History: Reports: Fracture (left thumb) Psychiatric History: Reports: Anxiety - Past Surgical History HEENT Surgical History: Reports: Oral Surgery (wisdom teeth extraction) GI Surgical History: Reports: EGD (x 1) Musculoskeletal Surgical History: Reports: Other (See Below) (CRIF left thumb, with subsequent removal of pins) Social & Family History - Family History Family Medical History: Noncontributory - Tobacco Use Smoking Status *Q: Never Smoker - Caffeine Use Caffeine Use: Reports: None - Alcohol Use Alcohol Use History: Yes Alcohol Use Frequency: Socially - Recreational Drug Use Recreational Drug Use: No - Living Situation & Occupation Living situation: Reports: , with Spouse, with Family (2 kids) 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 ED EXAM, GENERAL - Physical Exam Exam: See Below Exam Limited By: No Limitations General Appearance: Alert, WD/WN, Anxious Eye Exam: Bilateral Eye: EOMI, Normal Inspection Ears: Normal External Exam, Hearing Grossly Normal Nose: Normal Inspection Throat/Mouth: Normal Inspection, Normal Lips, Normal Voice, No Airway Compromise Head: Atraumatic, Normocephalic Neck: Normal Inspection, Full Range of Motion Respiratory/Chest: No Respiratory Distress, Lungs Clear, Normal Breath Sounds, No Accessory Muscle Use Cardiovascular: Normal Peripheral Pulses, Regular Rate, Rhythm, No Edema, No Gallop, No JVD, No Murmur, No Rub Peripheral Pulses: 4+: Radial (L), Radial (R) GI/Abdominal: Normal Bowel Sounds, Soft, Non-Tender, No Organomegaly, No Distention, No Abnormal Bruit, No Mass (Male) Exam: Deferred Rectal (Males) Exam: Deferred Back Exam: Normal Inspection, Full Range of Motion, NT Extremities: Normal Inspection, Normal Range of Motion, No Pedal Edema, Normal Capillary Refill Neurological: Alert, Oriented, Normal Cognition, No Motor/Sensory Deficits Psychiatric: Anxious Skin Exam: Warm, Dry, Intact, Normal Color, No Rash EKG INTERPRETATION EKG Date: 01/11/19 Time: 05:06 Rhythm: NSR Rate (Beats/Min): 74 Becker: RAD-Right Becker Deviation (likely 2 LPFB) P-Wave: Present QRS: Normal (Normal transition. Q waves in the inferior leads suggesting an old IWMI.) ST-T: Normal QT: Normal Comparison: No Change (05/05/2018) Course - Vital Signs Last Recorded V/S: Last Vital Signs Temp 37.1 C 01/11/19 07:45 Pulse 76 01/11/19 07:45 Resp 16 01/11/19 07:45 BP 137/84 01/11/19 07:45 Pulse Ox 98 01/11/19 07:45 Orthostatic Blood Pressure [ 139/100 Standing] Orthostatic Blood Pressure [ 157/92 Supine] - Orders/Labs/Meds Labs: Laboratory Tests 01/11/19 01/11/19 01/11/19 Range/Units 05:15 05:15 05:15 WBC 5.25 (4.23-9.07) K/mm3 RBC 5.35 (4.63-6.08) M/mm3 Hgb 15.9 (13.7-17.5) gm/dl Hct 46.6 (40.1-51.0) % MCV 87.1 (79.0-92.2) fl MCH 29.7 (25.7-32.2) pg MCHC 34.1 (32.2-35.5) g/dl RDW Std Deviation 38.5 (35.1-43.9) fL Plt Count 225 (163-337) K/mm3 MPV 10.3 (9.4-12.3) fl Neutrophils % (Manual) 76 H (40-60) % Band Neutrophils % 0 (0-10) % Lymphocytes % (Manual) 19 L (20-40) % Atypical Lymphs % 0 % Monocytes % (Manual) 4 (2-10) % Eosinophils % (Manual) 1 (0.8-7.0) % Basophils % (Manual) 0 L (0.2-1.2) Platelet Estimate Adequate Poikilocytosis 1+ slight RBC Morph Comment Not Reportable D-Dimer, Quantitative < 0.19 L (0.19-0.50) mg/L Sodium 140 (136-145) mEq/L Potassium 3.8 (3.5-5.1) mEq/L Chloride 103 (98-107) mEq/L Carbon Dioxide 28 (21-32) mEq/L Anion Gap 12.8 (5-15) BUN 12 (7-18) mg/dL Creatinine 1.1 (0.7-1.3) mg/dL Est Cr Clr Drug Dosing 94.06 mL/min Estimated GFR (MDRD) > 60 (>60) mL/min BUN/Creatinine Ratio 10.9 L (14-18) Glucose 110 H (74-106) mg/dL Calcium 9.2 (8.5-10.1) mg/dL Magnesium 1.9 (1.8-2.4) mg/dl Total Bilirubin 0.4 (0.2-1.0) mg/dL AST 19 (15-37) U/L ALT 31 (16-63) U/L Alkaline Phosphatase 85 (46-116) U/L Troponin I < 0.017 (0.00-0.056) ng/mL Total Protein 7.9 (6.4-8.2) g/dl Albumin 4.3 (3.4-5.0) g/dl Globulin 3.6 gm/dL Albumin/Globulin Ratio 1.2 (1-2) TSH 3rd Generation 2.117 (0.358-3.74) uIU/mL Meds: Medications Discontinued Medications Generic Name Dose Route Start Last Admin Trade Name Freq PRN Reason Stop Dose Admin Lorazepam 1 mg 01/11/19 04:53 01/11/19 04:58 Ativan PO 01/11/19 04:54 1 mg ONETIME ONE Administration - Re-Assessments/Exams Free Text/Narrative Re-Assessment/Exam: 01/11/19 04:52 On examination, the patient's oxygen saturation was 100% on room air, suggesting hyperventilation, and his history is entirely consistent with his symptoms being due to anxiety. The patient acknowledges this, but agreed to some tests to make sure that no medical problems might be the cause of his symptoms. I have ordered a workup. In the meantime, the patient will receive 1 mg of oral Ativan. 01/11/19 05:36 2-view chest radiograph appears to be grossly normal. The cardiac silhouette is within normal limits. No pulmonary vascular congestion. No pleural effusions. No focal infiltrate. No pneumothorax. Formal read per the Radiologist pending. 01/11/19 07:16 The patient's CBC is unremarkable. His CMP is remarkable for a blood glucose mildly elevated at 110, and is otherwise unremarkable. His magnesium is within normal limits at 1.9. His troponin is undetectably low. His D-dimer is undetectably low. His TSH is within normal limits at 2.117. 01/11/19 07:22 The patient is not quite orthostatic. 01/11/19 07:35 Test results discussed with the patient and his . The patient states that he feels 90% better after receiving oral Ativan. Today's workup is entirely unremarkable, ruling out physiologic causes for his symptoms. As above, his symptoms are most likely due to anxiety. I'm recommending that he continue on the Prozac that he is currently prescribed, but when he follows up with his PCP next , 01/19/2019, if he is still having symptoms, he might want to talk about switching to a different SSRI. Departure - Departure Time of Disposition: 07:37 Disposition: Home, Self-Care 01 Condition: Good Clinical Impression: Generalized anxiety disorder with panic attacks - Discharge Information *PRESCRIPTION DRUG MONITORING PROGRAM REVIEWED*: Not Applicable *COPY OF PRESCRIPTION DRUG MONITORING REPORT IN PATIENT DINAH: Not Applicable Instructions: Generalized Anxiety Disorder, Adult, How to Help Your Child [place] With Anxiety Referrals: Mitch Payan MD [Primary Care Provider] - Forms: ED Department Discharge Additional Instructions: You were seen in the emergency room after waking feeling sweaty, dizzy, and tingling of her shoulders. Workup in the ER included blood work, positional blood pressure checks, a chest x-ray, and an ECG. The entire workup was unremarkable, ruling out physiologic causes for your symptoms. Based on your history, physical exam, and ER tests, the cause of your symptoms was most likely anxiety. We recommend that you continue to take the Prozac that you are currently out, however, when you follow-up with lloyd Hilliard at previously scheduled appointment on , 01/19/2019, you could discuss switching to a different SSRI, such as escitalopram (Lexapro). We recommend that you stay adequately hydrated. Gatorade or Powerade are best. If any other problems, please do not hesitate to return to the ER.
--- NOTE | 2019-01-11 08:24 | CR ---
Chest: Two views of the chest were obtained. Comparison: Prior chest x-ray of 05/05/18. Heart size and mediastinum are normal. Lungs are clear. Mild disc space narrowing is scattered within the spine. No acute bony abnormality is identified. Impression: 1. Nothing acute is appreciated on two-view chest x-ray. Diagnostic code #2
== END 2019-01-11 07:47 | disposition home or self-care (01) ==
LOC: JD.ED 03:48
DX: F41.1 Generalized anxiety disorder (principal); F41.0 Panic disorder [episodic paroxysmal anxiety]; I10 Essential (primary) hypertension; E78.00 Pure hypercholesterolemia, unspecified; Z79.899 Other long term (current) drug therapy
CPT/HCPCS: 36415; 71046; 80053; 83735; 84443; 84484; 85007; 85027; 85379; 93005; 99284; A9270; 93010; 99283

== ENCOUNTER 2022-12-29 21:06 | Emergency (ER) | payer BC | END 2022-12-29 22:29 | LOC: JD.ED 21:06 | DX: Z53.21 Procedure and treatment not carried out due to patient leaving prior to being seen by health care provider (principal) ==

== ENCOUNTER 2023-07-13 22:23 | Emergency (ER) | payer BC ==
[2023-07-13] MEDS: Aspirin 81 MG Tab.Chew PO ONE (22:54)
[2023-07-13 23:03] LABS: BASOPHILS PERCENT AUTO 0.4 % (0.0-1.0); EOSINOPHILS ABSOLUTE AUTO 0.1 K/mm3 (0.0-0.4); EOSINOPHILS PERCENT AUTO 0.7 % (0.0-6.0); HEMATOCRIT 46.3 % (42.0-52.0); HEMOGLOBIN 15.8 gm/dl (14.0-18.0); IMMATURE GRAN ABSOLUTE AUTO 0.03 K/mm3 (0.00-0.05); IMMATURE GRAN PERCENT AUTO 0.4 % (0.0-0.4); LYMPHOCYTES ABSOLUTE AUTO 1.6 K/mm3 (1.0-4.8); LYMPHOCYTES PERCENT AUTO 19.3 % (24.0-44.0); MEAN CORPUSCULAR HEMOGLOBIN 29.9 pg (28.0-32.0); MEAN CORPUSCULAR HGB CONC 34.1 g/dl (32.0-36.0); MEAN CORPUSCULAR VOLUME 87.7 fl (83.0-99.0); MEAN PLATELET VOLUME 9.1 fl (9.4-12.4); MONOCYTES ABSOLUTE AUTO 0.5 K/mm3 (0.0-0.8); MONOCYTES PERCENT AUTO 6.3 % (0.0-8.0); NEUTROPHILS PERCENT AUTO 72.9 % (41.0-71.0); PLATELET COUNT,PLT 262 K/mm3 (150-400); RED BLOOD CELL COUNT 5.28 M/mm3 (4.52-5.90); WHITE BLOOD CELL COUNT,WBC 8.28 K/mm3 (3.9-11.3)
[2023-07-13 23:47] LABS: A/G RATIO 1.1 (1-2); ALBUMIN 4.4 g/dl (3.4-5.0); ANION GAP 14.9 (5-15); BILIRUBIN TOTAL 0.5 mg/dL (0.2-1.0); BUN/CREATININE RATIO 10.8 (14-18); CALCIUM 9.4 mg/dL (8.5-10.1); CREATININE 1.2 mg/dL (0.7-1.3); EST CRCL DRUG DOSING (CG) 82.63 mL/min; POTASSIUM,K 3.9 mEq/L (3.5-5.1); PROTEIN TOTAL,TP 8.3 g/dl (6.4-8.2)
[2023-07-13] MEDS: Alum Hydrox/Mag Hydrox/Simeth 30 ML, Lidocaine 2% 15 ML PO ONE (23:59)
== END 2023-07-14 01:48 | disposition home or self-care (01) ==
LOC: JD.ED 22:23
DX: R07.9 Chest pain, unspecified (principal); I10 Essential (primary) hypertension; E78.00 Pure hypercholesterolemia, unspecified; K21.9 Gastro-esophageal reflux disease without esophagitis; Z86.16 Personal history of COVID-19; Z79.899 Other long term (current) drug therapy
CPT/HCPCS: 36415; 71045; 80053; 83690; 83880; 84484; 85025; 85379; 93005; 99285; A9270